=== PATIENT | female | born 1990 | race Caucasian/White ===

== ENCOUNTER 2024-03-15 14:34 | Outpatient (OUT) | payer OTHER, SELFPAY ==
--- NOTE | 2024-03-15 14:41 | XR_ITS ---
[address] [address] Patient Name: BHUPINDER TERRY MRN: [id number] date: 1990 Sex: F Assigned Patient Location: [facility] Current Patient Location: Accession/Order Number: [id number] Exam Date: 03/15/2024 14:48 Report Date: 03/17/2024 05:38 At the request of: THONG MICHEL Procedure: XR humerus RT PROCEDURE: XR humerus RT HISTORY: Arm Pain ; increasing chronic upper arm pain and burning sensation COMPARISON: None. FINDINGS: BONES:No fracture, acute abnormality, or significant arthropathy. SOFT TISSUES:No visible soft tissue swelling. EFFUSION:None visible. OTHER: Negative. XR/XR humerus RT IMPRESSION: 1. Normal examination. Electronically authenticated by: SHARON BRIDGES Date: 03/17/2024 05:38
== END 2024-03-15 14:35 | disposition home or self-care (01) ==
LOC: RAD 14:38
PROVIDERS: PCP Nurse Practitioner Family; Visit Provider Nurse Practitioner Family
DX: M79.601 Pain in right arm (principal)
CPT/HCPCS: 73060

== ENCOUNTER 2024-03-27 15:25 | Outpatient (RCR) | payer OTHER, SELFPAY | END 2024-04-24 14:58 | disposition home or self-care (01) | LOC: PT 15:25 | PROVIDERS: PCP Nurse Practitioner Family; Visit Provider Nurse Practitioner Family | DX: M79.601 Pain in right arm (principal) | CPT/HCPCS: 97010; 97014; 97035; 97110; 97140; 97161 ==

== ENCOUNTER 2024-04-25 11:22 | Outpatient (RCR) | payer OTHER, SELFPAY | END 2024-04-28 15:51 | disposition home or self-care (01) | LOC: PT 11:22 | PROVIDERS: PCP Nurse Practitioner Family; Visit Provider Nurse Practitioner Family | DX: M79.601 Pain in right arm (principal) | CPT/HCPCS: 97110; 97140 ==